=== PATIENT | male | born 1965 | race Caucasian/White ===

== ENCOUNTER 2017-08-10 02:57 | Emergency (ER) | payer OTHER ==
[~2017-08-10] VITALS: Ht 182.9 cm; Wt 97.5 kg
[2017-08-10] MEDS ORDERED: [UNRECOGNIZED DRUG - OTHER] (03:20)
[2017-08-10] MEDS ORDERED: IV NORMAL SALINE 1,000ML 1,000 ML IV SCH (03:28)
[2017-08-10 03:44] LABS: BASO % 0 % (0-3); EOS # 0.1 x10^3/uL (0.0-0.7); EOS % 2 % (0-3); HEMATOCRIT 40.6 % (39.0-53.0); HEMOGLOBIN 14.4 g/dL (13.0-17.5); LYMPH # 2.7 x10^3/uL (1.0-4.8); LYMPH % 46 % (24-48); MEAN CORPUSCULAR HEMOGLOBIN 33 pg (25-35); MEAN CORPUSCULAR HGB CONC 36 g/dL (31-37); MEAN CORPUSCULAR VOLUME 93 fL (79-100); MONO # 0.5 x10^3/uL (0.0-1.1); MONO % 8 % (0-9); NEUT # 2.6 x10^3uL (1.8-7.7); NEUT % 44 % (31-73); PLATELET COUNT 177 x10^3/uL (140-400); RED BLOOD COUNT 4.36 x10^6/uL (4.30-5.70); RED CELL DISTRIBUTION WIDTH 12.8 % (11.5-14.5); WHITE BLOOD COUNT 5.9 x10^3/uL (4.0-11.0)
[2017-08-10 03:54] LABS: ALBUMIN 3.9 g/dL (3.4-5.0); ALBUMIN/GLOBULIN RATIO 1.2 (1.0-1.7); CREATININE 1.1 mg/dL (0.7-1.3); GFR 70.6; POTASSIUM 4.1 mmol/L (3.5-5.1); TOTAL BILIRUBIN 0.9 mg/dL (0.2-1.0); TOTAL PROTEIN 7.2 g/dL (6.4-8.2)
--- NOTE | 2017-08-10 03:55 | PHYS DOC ---
General Chief Complaint: ABDOMINAL PAIN Stated Complaint: ABDOMINAL PAIN Time Seen by MD: 03:01 Source: patient Exam Limitations: no limitations Problems: History of Present Illness Initial Comments Patient is a 51-year-old male who comes to the emergency department complaining of abdominal discomfort. Patient states that approximately 2 hours ago he awoke with severe abdominal discomfort. He locates the pain as chest under his xiphoid, described as 10 over 10 sharp and constant no exacerbating or relieving factors. No associated belching or bloating no vomiting or bowel or bladder symptoms. He has history of mild GERD symptoms and tried taking some [id number] antacids without any relief. No fever chills or myalgias, last by mouth was manicotti at dinner time last bowel movement yesterday morning described as normal. Patient states that he was awake from approximately 1-5 AM yesterday with identical symptoms, he had Maltese food for dinner that night and his symptoms did resolve over time. He had a recurrence later yesterday afternoon which was milder after eating a fried pork chop. Patient states that a stomach virus has been running through his family and his who is at bedside recently had the symptoms, the symptoms were fever or body aches vomiting and diarrhea and resolved within 24 hours. Patient states that initially when he developed the pain he thought he was getting the same virus but now thinks maybe there is more to it. He admits to taking occasional ibuprofen prescribed to him by the for an old back injury but states that he doesn't take it very often. He is an occasional user of ethanol but denies daily or even frequent use. Denies any chest pain shortness of breath arm or neck symptoms diaphoresis or nausea. No history of abdominal surgeries. ED vitals: 97.7, 58, 20, 148/83, 99% room air Timing/Duration: other Severity: severe Modifying Factors: worse with eating Associated Symptoms: other Allergies: Coded Allergies: No Known Drug Allergies (Unverified , 08/10/17) Past Medical History Medical History: GERD, other (back pain) Surgical History: other (colonoscopy) Social History Smoker: non-smoker Alcohol: occasionally Drugs: none Review of Systems Constitutional: denies chills, denies diaphoresis, denies fever, denies malaise Respiratory: denies cough, denies shortness of breath, denies wheezing Cardiovascular: denies chest pain, denies palpitations, denies syncope Gastrointestinal: abdominal pain, denies diarrhea, denies nausea, denies vomiting Genitourinary: denies dysuria, denies frequency, denies hematuria Musculoskeletal: back pain, denies joint swelling, denies muscle pain, denies neck pain Psychiatric/Neurological: denies headache, denies numbness, denies paresthesia , denies weakness Hematologic/Lymphatic: denies blood clots, denies easy bleeding, denies easy bruising Physical Exam General Appearance: moderate distress (doubled over in pain) Eyes: bilateral eye normal inspection, bilateral eye PERRL, bilateral eye EOMI Ear, Nose, Throat: hearing grossly normal, normal ENT inspection, normal pharynx Neck: non-tender, supple Respiratory: normal breath sounds, no respiratory distress Cardiovascular: normal peripheral pulses, regular rate, rhythm Gastrointestinal: soft (nondistended, mild epigastric and significant right upper quadrant tenderness without rebound guarding or palpable mass, bowel sounds are diminished abdomen is nondistended) Rectal: deferred Back: no CVA tenderness, no vertebral tenderness Extremities: non-tender, normal inspection 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 Zofran, Pepcid, fentanyl, and GI cocktail, normal saline IV bolus initiated. Labs drawn and ultrasound ordered. Patient understands there could be somewhat of a prolonged delay waiting for on- call ultrasound to arrive. EKG: Sinus bradycardia 52 bpm, nonspecific T contour abnormality no ST segment elevation interpreted by me Pertinent labs: CBC unremarkable, BUN 23, creatinine 1.1, LFTs and lipase unremarkable, troponin 0.034 0515: Ultrasound evaluation has been completed and results are pending. Patient will have prolonged ED course due to radiology delay. Patient is resting comfortably currently pain free no new or progressive symptoms and vital signs are stable. PATIENT: SHAINA CARRANZA ACCOUNT: [id number] : 1965 LOCATION: ER AGE: 51 SEX: M EXAM STATUS: REG ER ORD. PHYSICIAN: NARESH PUENTES DO REASON: RUQ/epigastric pain/US Tech on the way 03:32a PROCEDURE: ABDOMEN LTD EXAM: RIGHT UPPER QUADRANT ULTRASOUND. HISTORY: Right upper quadrant pain. COMPARISON: None. FINDINGS: Sonographic evaluation of the right upper quadrant was performed. The liver appears normal in parenchymal echotexture. There are no focal lesions. One gallstone is mobile. The gallbladder is distended, but there is no pericholecystic fluid or wall thickening. The physician scientist reports tenderness over the gallbladder on scanning. The common duct measures 5 mm. The visualized portions of the head of the pancreas reveal no abnormality. The right kidney measures 10.4 cm. Cortical thickness and echogenicity are preserved. There is no hydronephrosis. The visualized portions of the abdominal aorta and inferior vena cava are grossly patent and normal in caliber. IMPRESSION: 1. Cholelithiasis. The physician scientist reports sonographic Madsen sign, but there is no gallbladder wall thickening or pericholecystic fluid. Correlate with other data to exclude acute cholecystitis. Electronically signed by: Preethi Fink MD (08/10/2017 5:25 AM) [facility] DICTATED AND SIGNED BY: AMRIK FINK MD DATE: 08/10/17521 CC: PCP,UNKNOWN; NARESH PUENTES DO ~ I discussed findings with the patient. Patient's pain has improved significantly. I discussed need to have his gallbladder removed but no emergent condition exists requiring transfer tonight. Patient would like to try going home with pain medications and dietary modifications as it is 2 days before [place]. He understands that if his symptoms worsen he needs to return to the emergency department but will otherwise follow-up at [facility] on Saturday for referral. Departure Time of Disposition: 05:48 Disposition: HOME, SELF-CARE Diagnosis: cholelithiasis Condition: IMPROVED Patient Instructions: Cholelithiasis Additional Instructions: Please review the patient education materials given by ED staff. No driving or operating machinery while sedated from pain medications. Aggressive hydration with Gatorade or water. Avoid alcohol, fried, fatty, or spicy foods or any other foods do notice aggravate your gallbladder symptoms. Prescription: [place] 7.5 mg quantity 30, Zofran ODT Off work until cleared by your doctor. As discussed you will likely need to have your gallbladder removed. Follow-up at [facility] on Saturday for recheck and general surgical consultation for outpatient elective cholecystectomy. Return to ED with worsening of symptoms. NARESH PUENTES DO Aug 10, 2017 03:55
[2017-08-10] MEDS ORDERED: LIDO:MAALOX 1:1 20 ML SINGLE DOSE PO ONE (04:00)
[2017-08-10] MEDS ORDERED: FAMOTIDINE 20 MG/2 ML VIAL IVP ONE (04:00)
[2017-08-10] MEDS ORDERED: ONDANSETRON PF 4 MG/2 ML VIAL. IV ONE ×2 (04:00→06:15)
[2017-08-10] MEDS ORDERED: KETOROLAC 30 MG/ML VIAL. IV ONE (04:00)
--- NOTE | 2017-08-10 05:28 | RAD ---
EXAM: RIGHT UPPER QUADRANT ULTRASOUND. HISTORY: Right upper quadrant pain. COMPARISON: None. FINDINGS: Sonographic evaluation of the right upper quadrant was performed. The liver appears normal in parenchymal echotexture. There are no focal lesions. One gallstone is mobile. The gallbladder is distended, but there is no pericholecystic fluid or wall thickening. The protection mgr reports tenderness over the gallbladder on scanning. The common duct measures 5 mm. The visualized portions of the head of the pancreas reveal no abnormality. The right kidney measures 10.4 cm. Cortical thickness and echogenicity are preserved. There is no hydronephrosis. The visualized portions of the abdominal aorta and inferior vena cava are grossly patent and normal in caliber. IMPRESSION: 1. Cholelithiasis. The protection mgr reports sonographic Madsen sign, but there is no gallbladder wall thickening or pericholecystic fluid. Correlate with other data to exclude acute cholecystitis. Electronically signed by: Preethi Fink MD (08/10/2017 5:25 AM) [facility]
[2017-08-10] MEDS ORDERED: ONDA4TAB10 PO (05:47)
[2017-08-10] MEDS ORDERED: HYDR-965 PO (05:47)
[2017-08-10 06:00] VITALS: BP 118/85
--- NOTE | 2017-08-10 06:20 | EKG ---
[address] [address] Test Date: 2017-08-10 Test Time: 04:08:39 Pat Name: SHAINA CARRANZA Department: Room: Gender: M [employer] Gr[employer]ender: MIKHAIL : 1965 Requested By: NARESH PUENTES Order Number: [id number] Reading MD: Measurements Intervals [place] Rate: 52 P: 40 RI: 170 QRS: 55 QRSD: 96 T: 49 QT: 424 QTc: 396 Interpretive Statements SINUS RHYTHM QRS(T) CONTOUR ABNORMALITY CONSIDER ANTEROLATERAL MYOCARDIAL DAMAGE POSSIBLY ABNORMAL ECG RI6.01 Unconfirmed report No previous ECG available for comparison
[2017-08-10] MEDS ORDERED: ONDANSETRON 4MG ODT 4TABLET STARTPACK. PO ONE (06:30)
== END 2017-08-10 06:16 | disposition home or self-care (01) ==
LOC: ER 02:57
DX: K80.20 Calculus of gallbladder without cholecystitis without obstruction (principal); K21.9 Gastro-esophageal reflux disease without esophagitis
CPT/HCPCS: 36415; 76705; 80053; 82550; 83690; 84484; 85025; 93005; 96361; 96374; 96375; 96376; 99285; J1885; J2405; J3010; Q0162; S0028; J7030

== ENCOUNTER 2019-02-10 22:25 | Emergency (ER) | payer OTHER ==
[~2019-02-10] VITALS: Ht 182.9 cm; Wt 98.4 kg
[~2019-02-10 22:25] MED LIST: HYDR-3166 PO; ONDA4TAB10 PO; [UNRECOGNIZED DRUG - OTHER]
[2019-02-10 23:05] VITALS: BP 131/82
[2019-02-10] MEDS ORDERED: LIDOCAINE 1% Multi-Dose 20 ML VIAL. ONE (23:19)
[2019-02-10] MEDS ORDERED: LIDOCAINE 1% Multi-Dose 20 ML VIAL. ID ONE (23:30)
[2019-02-10] MEDS ORDERED: DIPHTH,PERTUSS(ACELL),TET TOX 0.5 ML DISP.SYRIN. VAX IM ONE (23:30)
--- NOTE | 2019-02-10 23:55 | PHYS DOC ---
General Chief Complaint: LACERATION/AVULSION Stated Complaint: RT THUMB LACERATION Time Seen by MD: 23:25 Source: patient Exam Limitations: no limitations History of Present Illness Initial Comments Right thumb pad laceration. Patient has a rehabilitation center curvilinear full-thickness laceration to right thumb pad. Injury occurred just prior to ED arrival. Patient was using a clean kitchen knife to denies carrots. Tetanus is not up-to-date.patient is not on blood thinners. No other acute symptoms or complaints. Onset: just prior to arrival Severity: moderate Pain/Injury Location: right thumb Method of Injury: incised Allergies: Coded Allergies: No Known Drug Allergies (Unverified , 08/10/17) Past Medical History Medical History: no pertinent history Surgical History: other Review of Systems Constitutional: no symptoms reported Physical Exam General Appearance: WD/WN HEENT: PERRL/EOMI Hand: laceration (3.5 cm right thumb pad laceration, full-thickness, bleeding, clean.) Laceration/Wound Repair Laceration/Wound Repair : Wound Location: upper extremity Wound Explored: no foreign body removed Betadine Prep?: Yes Anesthesia: 1% Lidocaine Suture Size/Type: 5:0, nylon Number of Sutures: 6 Splint Applied?: Yes Orders, Labs, Meds Right thumb wound cleansed and closed. Tetanus updated. Typical wound care instructions given. Return precautions reviewed. ZANA LAZCANO DO Feb 10, 2019 23:55
== END 2019-02-11 00:01 | disposition home or self-care (01) ==
LOC: ER 22:25
DX: S61.011A Laceration without foreign body of right thumb without damage to nail, initial encounter (principal); W26.0XXA Contact with knife, initial encounter; Y93.89 Activity, other specified; Y92.89 Other specified places as the place of occurrence of the external cause; Y99.8 Other external cause status
CPT/HCPCS: 12002; 90471; 90715; 99283-25